=== PATIENT | male | born 1975 | race Caucasian/White ===

== ENCOUNTER 2021-05-26 15:56 | Outpatient (CLI) | payer BC, SELFPAY ==
--- NOTE | ~2021-05-26 | XR_ITS ---
XR lumbar spine 2-3V 05/26/2021 16:19 Indication: Low back pain Procedure: 3 views lumbar spine Comparison: 05/29/2014. Findings: Vertebral body heights are maintained. No fracture, subluxation or dislocation. No evidence for spondylolysis or spondylolisthesis. Pedicles intact. Sacral foramen are symmetric. Impression: 1: No significant abnormality of the lumbar spine. Reviewed, dictated and finalized at location B. CH EDGE OPERATOR Impression: 1: No significant abnormality of the lumbar spine.
== END 2021-05-26 15:57 | disposition home or self-care (01) ==
LOC: ANHIMG 16:03
PROVIDERS: PCP Family Medicine; Visit Provider Physician Assistant
DX: M54.50 Low back pain, unspecified (principal)
CPT/HCPCS: 72100

== ENCOUNTER → 2021-10-13 08:56 | Outpatient (CLI) | payer BC, SELFPAY ==
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
== END ==
PROVIDERS: PCP Family Medicine; Visit Provider Nurse Practitioner Family
DX: M47.896 Other spondylosis, lumbar region (principal)
CPT/HCPCS: 72148

== ENCOUNTER 2022-05-29 19:17 | Emergency (ER) | payer OTHER, BC, SELFPAY ==
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
[2022-05-29 19:22] VITALS: BP 125/78; PULSE 63; RESP 18; TEMP 36.7; O2SAT 100
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
[2022-05-29] MEDS: CYCLOBENZAPRINE HCL 5 MG TABLET PO (20:41)
[2022-05-29] MEDS: HYDROcodone/acetaminophen (*CRX) 10-325 MG TABLET 1 TAB PO (20:41)
[2022-05-29 21:51] VITALS: BP 128/79; PULSE 73; RESP 17; O2SAT 100
== END 2022-05-29 21:52 | disposition home or self-care (01) ==
PROVIDERS: Emergency Provider Physician Assistant; PCP Family Medicine
DX: S19.9XXA Unspecified injury of neck, initial encounter (principal); S39.92XA Unspecified injury of lower back, initial encounter; V43.52XA Car driver injured in collision with other type car in traffic accident, initial encounter
CPT/HCPCS: 72110; 72125; 72220; 99284; A9270

== ENCOUNTER 2023-09-02 16:09 | Outpatient (CLI) | payer OTHER, SELFPAY ==
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
== END 2023-09-02 16:10 ==
PROVIDERS: PCP Family Medicine; Visit Provider Family Medicine
DX: S69.91XA Unspecified injury of right wrist, hand and finger(s), initial encounter (principal); X58.XXXA Exposure to other specified factors, initial encounter
CPT/HCPCS: 73130

== ENCOUNTER 2024-10-18 10:10 | Outpatient (CLI) | payer OTHER, SELFPAY ==
--- NOTE | ~2024-10-18 | XR_ITS ---
Clinical Indication: Preprocedural evaluation PA and lateral views of the chest: Comparison: None Findings: The lungs are clear, without evidence of focal consolidation or pleural effusion. Cardiome diastinal silhouette is within normal limits. Bones and soft tissues are unremarkable. Impression: Normal chest. Reviewed, dictated and finalized at [facility]. Impression: Normal chest.
--- OUTSIDE RECORDS SUMMARY | 2024-10-18 10:24 | XMS_ITS | Clinical Summary ---
Author Organization [facility] Address [address] [place] [address] Phone Care Team Providers Care Separations Scientist Name Role Phone Unavailable Primary Care Provider Unavailabl e Allergies Active Allergy Reactions Criticality Noted Date Comments Penicillins Rash Medications Finasteride 1 MG TabletIndications: Androgenetic Alopecia Take 1 mg by mouth every morning. Indications: Male Pattern Baldness Active VALACYCLOVIR HCL PO Take 1 g by mouth as needed. Active Multiple Vitamins-Minerals (MULTIVITAMIN PO) Take by mouth every morning. Active cetirizine (ZYRTEC ALLERGY) 10 MG Tablet Take 10 mg by mouth every morning. Active Cholecalciferol (Vitamin D3) 1000 UNIT Tablet Take 80 Tabs by mouth daily. 60 Tab 6 0 Active Calcium Polycarbophil (FIBER-CAPS PO) Take by mouth. Pt states hes taking steel stool for fiber Active Probiotic Product (PROBIOTIC DAILY PO) Take by mouth. Active Active Problems Problem Noted Date Diagnosed Date Elevation of level of transa minase and lactic acid dehydrogenase (LDH) 04/03/2014 Immunizations Immunization Administration Dates Next Due Covid-19, Mrna, Lnp-s, Pf, 3 0 Mcg/0.3 Ml Dose (BURLESQUICEOUS) 07/14/2020,06/23/2020 DTP Vaccine 07/31/1982, 9,1977,1977,1977 Influenza Vaccine 01/12/2016,02/26/2015 Influenza Vaccine, MDCK,quad rivalent, pres free 01/10/2017 Influenza Vaccine, Quadrivalent, PF 02/14/2020,1 04/16/2018 Influenza, Injectable, Mdck,quadrivalent,with Preservative 02/23/2018 Influenza, Injectable, Quadrivalent 02/14/2019 Influenza, Seasonal, Injecta ble, Undefined 02/12/2014 MMR Vaccine 10/23/1991,08/26/1978 OPV 07/31/1982, 9,1977,1977,1977 TD VACCINE 10/23/1991 Family History * Patient is adopted Medical History Relation Name Comments Diabetes Mother Relation Name Status Comments Father Other Mother Other Other Patient states that his biological aunt and uncle had nervous stomach issues Social History Tobacco Use Types Packs/Day Years Used Date Smoking Tobacco: Never Smokeless Tobacco: Never Tobacco Cessation:Counseling Given: No Alcohol Use Standard Drinks/Week Comments Yes 0 (1 standard drink = 0.6 oz pur e alcohol) Rare Sexually Active Control Partners Comments Yes Sex and Gender Information Value Date Recorded Sex Assigned at Not on file Legal Sex Male 10:51 PM CDT Gender Identity Not on file Sexual Orientation Not on file 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 on file Not on file No t on file Last Filed Vital Signs Vital Sign Reading Time Taken Comments Blood Pressure 130/76 10/02/2020 1:51 PM CDT Pulse 61 10/02/2020 1:51 PM CDT Temperature 36.1 C (97 F) 10/31/2019 8:30 AM CDT Respiratory Rate 20 10/02/2020 1:51 PM CDT Oxygen Saturation 96% 10/02/2020 1:51 PM CDT Inhaled Oxygen Concentration - - Weight 83 kg (183 lb) 10/02/2020 1:51 PM CDT Height 177.8 cm (5' 10) 10/02/2020 1:51 PM CDT Body Mass Index 26.26 10/02/2020 1:51 PM CDT Plan of Treatment Health Maintenance Due Date Last Done Comments Hepatitis C Virus (HCV) Screening 1977 DTaP/Tdap/Td Immunization (5 - Tdap) 10/24/1991 10/23/1991, 07/31/1982, 12/13/1978, Additional history exists Hepatitis B Immunization (1 of 3 - 19+ 3-dose series) 1996 Cologuard 2022 Immunochemical Fecal Occult Blood 2022 SARS-COV-2 Immunization ( season) 2023 07/14/2020, 06/23/2020 Influenza Immunization (#1) 12/04/202402/03, 02/14/2019, 02/14/2019, Additional history exists Colonoscopy 07/20/2027 07/19/2017 Colorectal Cancer Screening 07/20/2027 Respiratory Syncytial Virus (RSV) Immunization (Adult) (1 - 1-dose 75+ series) 2052 Human Papillomavirus (HPV) Immunization Aged Out No longer eligible based on patient's age to complete this topic Meningococcal Immunization (ACWY) Aged Out No longer eligible based on patient's age to complete this topic Pneumococcal Immunization Combined Aged Out No longer eligible based on patient's age to complete this topic Rotavirus Immunization Aged Out No lo nger eligible based on patient's age to [place] [address] [facility]
--- OUTSIDE RECORDS SUMMARY | 2024-10-18 10:24 | XMS_ITS | Clinical Summary ---
Author Organization [facility] Address [address] [place] [address] Care Team Providers Care Rn Chronic Name Role Phone Unavailable Primary Care Provider Unavailabl e Source Comments [facility],non-owned Affiliates and Associated Physician Practices is amultiple site organization consisting of ambulatory clinics and hospital sitesin [place], [place], [place] and [place]. This disclosure is being madepursuant to the Care Everywhere program and may not contain all information available regarding this patient. Last updated 17.[facility] Social History Tobacco Use Types Packs/Day Years Used Date Smoking Tobacco: Never Assessed Sex and Gender Information Value Date Recorded Sex Assigned at Not on file Legal Sex Male 10:40 AM CDT Gender Identity Not on file Sexual Orientation Not on file Plan of Treatment Health Maintenance Due Date Last Done Comments COLOGUARD (AGES 45-75) - COL ON CA SCREENING 1977 COLON MONITORING 1977 COLONOSCOPY - COLON CA SCREENING 1977 CT COLONOGRAPHY - COLON CA SCREENING 1977 Colorectal Cancer Screening 1977 FIT - COLON CA SCREENING 1977 FLEX SIG - COLON CA SCREENING 1977 LIPID TESTING 1977 HIV SCREENING 1992 HEPATITIS C SCREENING 05/25/1995 DTAP/TDAP/TD VACCINES (1 - Tdap) 1996 HEPATITIS B VACCINE (1 of 3 - 19+ 3-dose series) 1996 COVID-19 VACCINE ( - 2023-2 5 season) 2023 DEPRESSION SCREENING 04/05/2024 INFLUENZA VACCINE (#1) 2024 ZOSTER VACCINE (1 of 2) 2027 HIB VACCINE Aged Out No longer eligi ble based on patient's age to complete this topic HPV VACCINE Aged Out No longer eligi ble based on patient's age to complete this topic MENINGOCOCCAL (Group B) VACC INE SHARED DECISION-MAKING Aged Out No longer eligibl e based on patient's age to complete this topic MENINGOCOCCAL GROUPS A/C/Y/W VACCINE Aged Out No longer eligible b ased on patient's age to complete this topic PNEUMOCOCCAL VACCINE Aged Out No long er eligible based on patient's age to complete [place] [address] [facility] [facility] Address: [address] [place] [address]
--- OUTSIDE RECORDS SUMMARY | 2024-10-18 10:24 | XMS_ITS | Clinical Summary ---
Author Organization [facility] Address [address] [place] [id number] Care Team Providers Care Junior Copywriter Name Role Phone Harvinder Wan MD Primary Care Provider [phone] Allergies Active Allergy Reactions Criticality Noted Date Comments Penicillins Medications cetirizine (ZyrTEC) 10 mg tablet daily Active finasteride (PROPECIA) 1 mg tablet Take 1 tablet (1 mg total) by mouth daily Active valACYclovir (VALTREX) 1 gram tablet Take 0.5 tablets (500 mg total) by mouth daily Active meloxicam (MOBIC) 15 mg tablet daily Active Active Problems No known active problems Surgical History Surgery Date Site/Laterality Comments SHOULDER ARTHROSCOPY Bilateral Arthroscopy shoulder Medical History Medical History Date Comments Hx Other Medical IHR; Laterality : bilateral Family History Medical History Relation Name Comments Diabetes Other Family history of Diabetes mellitus; Relation Name Status Comments Other Social History Tobacco Use Types Packs/Day Years Used Date Smoking Tobacco: Never Assessed Alcohol Use Standard Drinks/Week Comments Yes 0 (1 standard drink = 0.6 oz pur e alcohol) Sex and Gender Information Value Date Recorded Sex Assigned at Not on file Legal Sex Male 3:06 AM SENIOR LINUX ADMINISTRATOR Gender Identity Not on file Sexual Orientation Not on file Obstetrics History Last Filed Vital Signs Vital Sign Reading Time Taken Comments Blood Pressure 126/76 06/04/2023 4:48 PM SENIOR LINUX ADMINISTRATOR Pulse 66 06/04/2023 4:48 PM SENIOR LINUX ADMINISTRATOR Temperature 36.6 C (97.9 F) 06/04/2023 4:48 PM SENIOR LINUX ADMINISTRATOR Respiratory Rate 18 06/04/2023 4:48 PM SENIOR LINUX ADMINISTRATOR Oxygen Saturation 99% 06/04/2023 4:48 PM SENIOR LINUX ADMINISTRATOR Inhaled Oxygen Concentration - - Weight 88.5 kg (195 lb) 06/04/2023 4:48 PM SENIOR LINUX ADMINISTRATOR Height 175.3 cm (5' 9) 03/27/2013 1:27 PM SENIOR LINUX ADMINISTRATOR Body Mass Index - - Plan of Treatment Health Maintenance Due Date Last Done Comments Colon Cancer Screening-Colonoscopy 1977 Depression Screening 1977 Hepatitis C Screening 1977 Hepatitis B Screening 1995 Regular Well Visit/Exam 18-64 1995 Covid-19 Vaccine ( season) 2023 07/14/2020, 06/23/2020 Influenza Vaccine (Season Ended) 2024 02/10/2022, 01/22/2022, 01/28/2021, Additional history exists DTaP/Tdap/Td Vaccine (6 - Td or Tdap) 04/01/2032 04/01/2022, 10/23/1991, 07/31/1982, Additional history exists Pneumococcal vaccine <65 Aged Out No longer eligible based on patient's age to complete this topic Insurance [facility] Address: [facility] [address] [place] [address] Care Teams Junior Copywriter Relationship Specialty Start Date End Date Harvinder Wan MD [address] [place] [id number] PCP - General Family Medicine 06/04/23
--- OUTSIDE RECORDS SUMMARY | 2024-10-18 10:24 | XMS_ITS | Referral Summary ---
Author Organization [facility] Address [address] [place] [id number] Care Team Providers Care Senior Compensation Analyst Name Role Phone Harvinder Wan MD Primary Care Provider [phone] Allergies Active Allergy Reactions Criticality Noted Date Comments Penicillins Medications cetirizine (ZyrTEC) 10 mg tablet daily Active finasteride (PROPECIA) 1 mg tablet Take 1 tablet (1 mg total) by mouth daily Active valACYclovir (VALTREX) 1 gram tablet Take 0.5 tablets (500 mg total) by mouth daily Active meloxicam (MOBIC) 15 mg tablet daily Active Active Problems No known active problems Social History Tobacco Use Types Packs/Day Years Used Date Smoking Tobacco: Never Assessed Alcohol Use Standard Drinks/Week Comments Yes 0 (1 standard drink = 0.6 oz pur e alcohol) Sex and Gender Information Value Date Recorded Sex Assigned at Not on file Legal Sex Male 3:06 AM CLOTH SHRINKING TESTER Gender Identity Not on file Sexual Orientation Not on file Last Filed Vital Signs Vital Sign Reading Time Taken Comments Blood Pressure 126/76 06/04/2023 4:48 PM CLOTH SHRINKING TESTER Pulse 66 06/04/2023 4:48 PM CLOTH SHRINKING TESTER Temperature 36.6 C (97.9 F) 06/04/2023 4:48 PM CLOTH SHRINKING TESTER Respiratory Rate 18 06/04/2023 4:48 PM CLOTH SHRINKING TESTER Oxygen Saturation 99% 06/04/2023 4:48 PM CLOTH SHRINKING TESTER Inhaled Oxygen Concentration - - Weight 88.5 kg (195 lb) 06/04/2023 4:48 PM CLOTH SHRINKING TESTER Height 175.3 cm (5' 9) 03/27/2013 1:27 PM CLOTH SHRINKING TESTER Body Mass Index - - Plan of Treatment Not on file Insurance [facility] Address: [address] [place] [address] [facility] H[facility]/PPO Address: [address] [address] [place] [address] Care Teams Senior Compensation Analyst Relationship Specialty Start Date End Date Harvinder Wan MD [address] [place] [id number] PCP - General Family Medicine 06/04/23
--- OUTSIDE RECORDS SUMMARY | 2024-10-18 10:24 | XMS_ITS | Encounter Summary ---
Author Organization [facility] Address [address] [place] [place] [address] Care Team Providers Care Pbx Manager Name Role Phone Unavailable Primary Care Provider Unavailabl e Encounter Details Date Type Department Care Team (Late st Contact Info) Description 09/23/2019 Lab Requisition [facility] [address] [place] [address] Jessica Diaz Update Information Social History Tobacco Use Types Packs/Day Years Used Date Smoking Tobacco: Never Assessed Sex and Gender Information Value Date Recorded Sex Assigned at Not on file Legal Sex Male 10:40 AM CDT Gender Identity Not on file Sexual Orientation Not on file documented as of this encounter Plan of Treatment Not on file documented as of this encounter Procedures Procedure Name Priority Date/Time Associated Diagnosis Comments SARS-COV-2 (COVID-19) IN HOUSE Routine 09/22/2019 1:30 PM CDT documented in this encounter Results * SARS-COV-2 (COVID-19) IN HOUSE (09/22/2019 1:30 PM CDT) COVID-19 PCR Not detected Not detected, Invalid 09/23/2019 11:17 PM CDT [facility] Microbiology SPECIMEN FROM NASOPHARYNGEAL STRUCTURE / Unknown Collection / Unknown 09/22/2019 1:30 PM CDT 09/23/2019 3:04 PM CDT Narrative [facility] - 09/23/2019 11:17 PM CDT This Real Time RT-PCR assay was developed and its performance characteristics determined by [facility]. This test has been authorized by the Food and Drug administration (FDA)under an Emergency Use Authorization (EUA). This test has been validated in accordance with the FDA's guidance document Policy for Diagnostic Testing in Laboratories Certified to perform High Complexity Testing under CLIA prior to Emergency Use Authorization for Coronavirus Disease-2019 during the Public Health Emergency issued on June 03, 2019. FDA independent review of this validation is pending. This test is only authorized for the duration of time the declaration that circumstances exist justifying the authorization of emergency use of in vitro diagnostic tests for detection of SARS-CoV-2 virus and/or diagnosis of COVID-19 infection under section 564(b)(1) of the Act, 21 U.S.C 360bbb-3 (b)(1), unless the authorization is terminated or revoked sooner. Jessica Diaz LAB - MICROBIOLOGY ORDERAB LES Final Result [facility] [address] [place] [address], [facility] [phone] documented in this encounter Visit Diagnoses Not on filedocumented in this encounter Additional Health Concerns Infection Onset Date Last Indicated Resolved Time COVID-19 Under Investigation 09/23/2019 09/22/2019 09/23/2019 11:17 PM CDT documented as of this encounter
--- OUTSIDE RECORDS SUMMARY | 2024-10-18 10:25 | XMS_ITS | Clinical Summary ---
Author Organization [facility] Address [address] [place] [address] Care Team Providers Care Press Feeder [employer] Name Role Phone Unavailable Primary Care Provider Unavailabl e Social History Tobacco Use Types Packs/Day Years Used Date Smoking Tobacco: Never Assessed Sex and Gender Information Value Date Recorded Sex Assigned at Not on file Legal Sex Male 7:27 PM CDT Gender Identity Not on file Sexual Orientation Not on file Plan of Treatment Health Maintenance Due Date Last Done Comments Colorectal Cancer Screening Colonoscopy (10 Years) 1977 Annual Physical 1980 Hepatitis C 1995 DTaP, Tdap and Td Vaccines ( 1 - Tdap) 1996 Hepatitis B Vaccines (1 of 3 - 19+ 3-dose series) 1996 COVID-19 Vaccine (2023-2 5 season) 2023 Meningococcal B Vaccine Aged Out No l onger eligible based on patient's age to complete this topic Meningococcal Vaccine Aged Out No kobe stephon eligible based on patient's age to complete this topic Pneumococcal Vaccine: Pediat rics (0 to 5 Years) and At-Risk Patients (6 to 49 Years) Aged Out No longer eligible b ased on patient's age to complete this topic RSV Immunizations Under 20 Months Aged Out No longer eligible based on patient's age to complete this topic
== END 2024-10-18 10:11 | disposition home or self-care (01) ==
PROVIDERS: PCP Family Medicine
DX: Z01.818 Encounter for other preprocedural examination (principal)
CPT/HCPCS: 71046